=== PATIENT | female | born 1940 | race Asian ===

== ENCOUNTER 2017-05-11 14:27 | Emergency (ER) | payer MEDICARE ==
[~2017-05-11] VITALS: Ht 165.1 cm; Wt 60.9 kg
[2017-05-11] MEDS ORDERED: PHYTONADIONE 10 MG/ML, 1ML IM ONE (16:00)
[2017-05-11] MEDS ORDERED: PHYTONADIONE 10 MG/ML, 1ML ONE (16:13)
[2017-05-11 16:20] VITALS: BP 140/68
[2017-05-11] MEDS ORDERED: PHYTONADIONE 10 MG/ML, 1ML SQ ONE (16:30)
== END 2017-05-11 18:12 | disposition home or self-care (01) ==
LOC: ED 17:00
DX: S51.812A Laceration without foreign body of left forearm, initial encounter (principal); D68.32 Hemorrhagic disorder due to extrinsic circulating anticoagulants; E03.9 Hypothyroidism, unspecified; E11.9 Type 2 diabetes mellitus without complications; I10 Essential (primary) hypertension; Z88.1 Allergy status to other antibiotic agents; Y92.89 Other specified places as the place of occurrence of the external cause; Y99.8 Other external cause status
CPT/HCPCS: 96372; 99283; J3430